=== PATIENT | male | born 1985 | race Caucasian/White ===

== ENCOUNTER 2019-06-21 18:25 | Inpatient (IN) | payer OTHER ==
[2019-06-21 19:20] VITALS: BMI 27.6
--- NOTE | 2019-06-21 20:51 | HP ---
COWS - Scale Resting Pulse: 1= ME 81-100 Sweatin= Chills/Flushing Restless Observation: 1= Difficult to Sit Still Pupil Size: 0= Normal to Room Light Bone or Joint Aches: 4=Acute Joint/Muscle Pain Runny Nose/ Eye Tearin= Runny Nose/Eyes GI Upset > 30mins: 2= Nausea/Diarrhea (diarrhea x 3) Tremor Observation: 2= Slight Tremor Visible Yawning Observation: 0= None Anxiety or Irritability: 1=Feels Anxious/Irritable Goose Flesh Skin: 0=Smooth Skin COWS Score: 14 CIWA Score - Admission Criteria OASAS Guidelines: Admission for Medically Managed Detox: Requires at least one of the followin. CIWA greater than 12 2. Seizures within the past 24 hours 3. Delirium tremens within the past 24 hours 4. Hallucinations within the past 24 hours 5. Acute intervention needed for co occurring medical disorder 6. Acute intervention needed for co occurring psychiatric disorder 7. Severe withdrawal that cannot be handled at a lower level of care (continued vomiting, continued diarrhea, abnormal vital signs) requiring intravenous medication and/or fluids 8. Admission ROS [facility] Chief Complaint: Heroin withdrawal symptoms Allergies/Adverse Reactions: Allergies Allergy/AdvReac Type Severity Reaction Status Date / Time No Known Allergies Allergy Verified 06/21/19 19:12 History of Present Illness: 34 years old male with 10 years of heroin dependence is seeking admission to detox. He reports insignificant period of sobriety. Patient reports history of depression and anxiety. He denies suicide attempt / suicidal ideation at this time. Exam Limitations: No Limitations - Ebola screening Have you traveled outside of the country in the last 21 days: No (N) Have you had contact with anyone from an Ebola affected area: No Do you have a fever: No - Review of Systems Constitutional: Chills, Loss of Appetite, Weakness EENT: reports: Blurred Vision, Sinus Pressure Respiratory: reports: No Symptoms reported Cardiac: reports: No Symptoms Reported GI: reports: Diarrhea (x 3), Nausea, Poor Appetite, Poor Fluid Intake : reports: No Symptoms Reported Musculoskeletal: reports: Back Pain, Joint Pain Integumentary: reports: Dryness, Flushing Neuro: reports: Tremors Endocrine: reports: No Symptoms Reported Hematology: reports: No Symptoms Reported Psychiatric: reports: Judgement Intact, Mood/Affect Appropiate Other Systems: Reviewed and Negative Patient History - Patient Medical History Hx Anemia: No Hx Asthma: No Hx Chronic Obstructive Pulmonary Disease (COPD): No Hx Cancer: No Hx Cardiac Disorders: No Hx Congestive Heart Failure: No Hx Hypertension: No Hx Hypercholesterolemia: No Hx Pacemaker: No HX Cerebrovascular Accident: No Hx Seizures: No Hx Dementia: No Hx Diabetes: No Hx Gastrointestinal Disorders: No Hx Liver Disease: No Hx Genitourinary Disorders: No Hx Sexually Transmitted Disorders: No Hx Renal Disease (ESRD): No Hx Thyroid Disease: No Hx Human Immunodeficiency Virus (HIV): No (Negative 2016) Hx Hepatitis C: No Hx Depression: Yes (Lexapro) Hx Suicide Attempt: No (Denies suicide attempt / suicidal ideation at this time) Hx Bipolar Disorder: No Hx Schizophrenia: No Other Medical History: Anxiety -Not on medication - Patient Surgical History Past Surgical History: No - PPD History Previous Implant?: No Documented Results: Negative w/o proof Implanted On Prior [facility] Admission?: No PPD to be Administered?: Yes - Reproductive History Patient is a Female of Child Bearing Age (11 -55 yrs old): No (male) - Smoking Cessation Smoking history: Never smoked Have you smoked in the past 12 months: No Hx Chewing Tobacco Use: No Initiated information on smoking cessation: No - Substance & Tx. History Hx Alcohol Use: No Hx Substance Use: Yes Substance Use Type: None, Heroin Hx Substance Use Treatment: Yes ([facility], [place]) - Substances abused Heroin Substance route: Inhalation Frequency: Daily Amount used: between 2 and 3 bags Age of first use: 24 Date of last use: 06/21/19 Family Disease History - Family Disease History Family Disease History: Heart Disease: Father, Other: Mother (crohn's disease) Admission Physical Exam S - Vital Signs Vital Signs: Vital Signs - 24 hr 06/21/19 19:12 Temperature 97.1 F L Pulse Rate 85 Respiratory 16 Rate Blood Pressure 137/93 - Physical General Appearance: Yes: Moderate Distress, Tremorous, Anxious HEENTM: Yes: Within Normal Limits Respiratory: Yes: Lungs Clear, Normal Breath Sounds, No Respiratory Distress Neck: Yes: Within Normal Limits Breast: Yes: Breast Exam Deferred Cardiology: Yes: Regular Rhythm, Murmur Abdominal: Yes: Normal Bowel Sounds Genitourinary: Yes: Within Normal Limits Back: Yes: Normal Inspection Musculoskeletal: Yes: Back pain, Muscle Pain Extremities: Yes: Normal Inspection Neurological: Yes: Within Normal Limits Integumentary: Yes: Warm Lymphatic: Yes: Within Normal Limits - Diagnostic (1) Opioid dependence with withdrawal Current Visit: Yes Status: Acute (2) Anxiety Current Visit: Yes Status: Acute (3) Depression Current Visit: Yes Status: Acute Cleared for Admission [facility] - Detox or Rehab [facility] Level of Care: Medically Managed Detox Regimen/Protocol: Methadone Breathalyzer - Breathalyzer Breathalyzer: 0 Urine Drug Screen - Test Device Lot number: [id number] Expiration date: 03/29/21 - Control Is test valid?: Yes - Results Drug screen NEGATIVE: Yes Inpatient Rehab Admission - Rehab Decision to Admit Inpatient rehab admission?: No
[2019-06-21] MEDS ORDERED: MAG HYDROX/AL HYDROX/SIMETH 30 ML UNIT-DOSE CUP PO PRN (21:09)
[2019-06-21] MEDS ORDERED: cloNIDine HCL 0.1 MG TABLET PO PRN (21:09)
[2019-06-21] MEDS ORDERED: ACETAMINOPHEN 325 MG TABLET (FP) PO PRN ×2 (21:09)
[2019-06-21] MEDS ORDERED: MAGNESIUM HYDROX 2400MG/30ML ORAL SUSPENSION 30 ML CUP PO PRN (21:09)
[2019-06-21] MEDS ORDERED: MAGNESIUM CITRATE 300 ML BOTTLE PO PRN (21:09)
[2019-06-21] MEDS ORDERED: MENTHOL/PHENOL 1 EACH UD MM PRN (21:09)
[2019-06-21] MEDS ORDERED: IBUPROFEN 400 MG TABLET (FP) PO PRN (21:09)
[2019-06-21] MEDS ORDERED: METHOCARBAMOL 500 MG TABLET PO PRN (21:09)
[2019-06-21] MEDS ORDERED: METHADONE HCL 10 MG TABLET (FOR DETOX USE ONLY) PO ONE (21:09)
[2019-06-21] MEDS ORDERED: hydrOXYzine PAMOATE 25 MG CAPSULE (FP) PO PRN (21:09)
[2019-06-21] MEDS: THIAMINE HCL 100 MG TABLET (FP) PO SCH (22:35)
[2019-06-21] MEDS: MELATONIN 5 MG TABLETS PO PRN (22:35)
[2019-06-22] MEDS ORDERED: METHADONE HCL 10 MG TABLET (FOR DETOX USE ONLY) ONE (09:20)
[2019-06-22] MEDS ORDERED: METHADONE HCL 5 MG TABLET (FOR DETOX USE ONLY) ONE (09:20)
[2019-06-22] MEDS ORDERED: METHADONE (DETOX) 20 MG, METHADONE (DETOX) 5 MG PO ONE (10:00)
[2019-06-22] MEDS: PRENATAL VITAMINS W/ FOLIC ACID TABLET (FP) PO SCH (10:27)
[2019-06-22 10:56] LABS: HEMOGLOBIN 14.2 GM/dL (11.7-16.9); MCH 35.5 pg (25.7-33.7); MCHC 34.6 g/dl (32.0-35.9); MEAN CELL VOLUME 102.6 fl (80-96); MEAN PLT VOLUME 8.1 fl (7.5-11.1); RDW 13.6 % (11.9-15.9); WHITE BLOOD COUNT 6.8 K/mm3 (4.0-10.0)
[2019-06-22 11:12] LABS: ALBUMIN 3.8 g/dl (3.4-5.0); BILIRUBIN,TOTAL 0.4 mg/dL (0.2-1); BLOOD UREA NITROGEN 13.1 mg/dL (7-18); CREATININE 0.9 mg/dL (0.55-1.3); POTASSIUM 4.4 mmol/L (3.5-5.1); TOT PROT 6.8 g/dl (6.4-8.2)
[2019-06-22 11:21] LABS: PLATELET COUNT 279 K/MM3 (134-434)
--- NOTE | 2019-06-22 11:36 | PN ---
S COWS - Scale Resting Pulse: 0= [place] 80 or Below Sweatin= Beads of Sweat on Face Restless Observation: 1= Difficult to Sit Still Pupil Size: 0= Normal to Room Light Bone or Joint Aches: 2= Severe Diffuse Aches Runny Nose/ Eye Tearin= None GI Upset > 30mins: 0= None Tremor Observation of Outstretched Hands: 2= Slight Tremor Visible Yawning Observation: 1= 1-2x During Session Anxiety or Irritability: 2=Irritable/Anxious Goose Flesh Skin: 0=Smooth Skin COWS Score: 11 [facility] Progress Note (SOAP) Subjective: c/o sweats, anxiety, and irritability. Objective: 06/22/19 11:35 Vital Signs 06/22/19 06/22/19 06/22/19 03:47 06:00 09:56 Temperature 97.3 F L 97.7 F Pulse Rate 56 L 57 L Respiratory 18 18 18 Rate Blood Pressure 107/64 116/72 Lab Results WBC 6.8 K/mm3 (4.0-10.0) 06/22/19 08:00 RBC 4.00 M/mm3 (4.00-5.60) 06/22/19 08:00 Hgb 14.2 GM/dL (11.7-16.9) 06/22/19 08:00 Hct 41.0 % (35.4-49) 06/22/19 08:00 MCV 102.6 fl (80-96) H 06/22/19 08:00 MCHC 34.6 g/dl (32.0-35.9) 06/22/19 08:00 RDW 13.6 % (11.9-15.9) 06/22/19 08:00 Plt Count 279 K/MM3 (134-434) 06/22/19 08:00 Sodium 143 mmol/L (136-145) 06/22/19 08:00 Potassium 4.4 mmol/L (3.5-5.1) 06/22/19 08:00 Chloride 107 mmol/L (98-107) 06/22/19 08:00 Carbon Dioxide 31 mmol/L (21-32) 06/22/19 08:00 Anion Gap 5 MMOL/L (8-16) L 06/22/19 08:00 BUN 13.1 mg/dL (7-18) 06/22/19 08:00 Creatinine 0.9 mg/dL (0.55-1.3) 06/22/19 08:00 Random Glucose 83 mg/dL (74-106) 06/22/19 08:00 Calcium 9.0 mg/dL (8.5-10.1) 06/22/19 08:00 Labs reviewed. Assessment: 06/22/19 11:36 AOX3, in no acute respiratory distress. Full ROM, ambulating in the unit. Withdrawal symptoms. Plan: continue detox.
--- NOTE | 2019-06-22 16:53 | CONSULT ---
[facility] Psychiatric Consult - Data Date of interview: 06/22/19 Admission source: [facility] Identifying data: First admission to [facility] for this male self- referred for detoxification (heroin). Seen on 6 . Patient is single, no dependents, homeless, unemployed and deprived of any form of financial assistance. Substance Abuse History: Confirmed by patient in this interview. Details in current [facility] report as follows : Smoking history: Never smoked. Have you smoked in the past 12 months: No. Hx Chewing Tobacco Use: No. Initiated information on smoking cessation: No. - Substance & Tx. History. Hx Alcohol Use: No. Hx Substance Use: Yes. Substance Use Type: None, Heroin. Hx Substance Use Treatment: Yes ([facility], [facility]). - Substances abused. Heroin. Substance route: Inhalation. Frequency: Daily. Amount used: between 2 and 3 bags. Age of first use: 24. Date of last use: 06/21/19 Medical History: Patient endorses good general health. Psychiatric History: No reported history of psychiatric hospitalizations. Patient states that he was diagnosed, more than five years ago, with MDD, ADHD and Anxiety Disorder (was a patient at a rehabilitation center). Mr Alicia reports recent stay at [facility] (11 months). Left that program in February 2019. Patient was reportedly medicated with lexapro + suboxone. Has, since, dropped out of psychiatric aftercare. Patient denies history of suicide attempts. Physical/Sexual Abuse/Trauma History: Patient denies. Additional Comment: Drug screen is negative. Mental Status Exam - Mental Status Exam Alert and Oriented to: Time, Place, Person Cognitive Function: Good Patient Appearance: Well Groomed (heavy grey) Mood: Hopeful, Euthymic Affect: Appropriate, Normal Range Patient Behavior: Appropriate (friendly), Cooperative Speech Pattern: Clear, Appropriate Voice Loudness: Normal Thought Process: Goal Oriented Thought Disorder: Not Present Hallucinations: Denies Suicidal Ideation: Denies Homicidal Ideation: Denies Insight/Judgement: Poor Sleep: Well Appetite: Good Muscle strength/Tone: Normal Gait/Station: Normal Psychiatric Findings - Problem List ([place] 1, 2,3) (1) Opioid dependence with withdrawal Current Visit: Yes Status: Chronic - Initial Treatment Plan Initial Treatment Plan: Psychoeducation. Sleep hygiene. Support. Detoxification. AA/NA meetings. Groups. Observation.
[2019-06-22] MEDS: THIAMINE HCL 100 MG TABLET (FP) PO SCH (22:08)
[2019-06-22] MEDS: MELATONIN 5 MG TABLETS PO PRN (22:08)
[2019-06-23] MEDS: PRENATAL VITAMINS W/ FOLIC ACID TABLET (FP) PO SCH (09:39)
[2019-06-23] MEDS: BISMUTH SUBSALICYLATE 524 MG/30 ML UD PO PRN (09:41)
[2019-06-23] MEDS ORDERED: METHADONE HCL 10 MG TABLET (FOR DETOX USE ONLY) PO ONE (10:00)
--- NOTE | 2019-06-23 15:37 | PN ---
[facility] COWS - Scale Resting Pulse: 0= [place] 80 or Below Sweatin= Chills/Flushing Restless Observation: 3= Extraneous Movement Pupil Size: 0= Normal to Room Light Bone or Joint Aches: 1= Mild Discomfort Runny Nose/ Eye Tearin= Runny Nose/Eyes GI Upset > 30mins: 1= Stomach Cramp Tremor Observation of Outstretched Hands: 0= None Yawning Observation: 0= None Anxiety or Irritability: 2=Irritable/Anxious Goose Flesh Skin: 0=Smooth Skin COWS Score: 10 [facility] Progress Note (SOAP) Subjective: Feels ok, medication is working Objective: 06/23/19 15:35 Last Vital Signs Temp Pulse Resp BP Pulse Ox 97.7 F 67 18 121/75 06/23/19 13:10 06/23/19 13:10 06/23/19 13:10 06/23/19 13:10 Laboratory Tests 06/22/19 06/22/19 06/22/19 07:00 08:00 08:00 WBC 6.8 RBC 4.00 Hgb 14.2 Hct 41.0 MCV 102.6 H MCH 35.5 H MCHC 34.6 RDW 13.6 Plt Count 279 MPV 8.1 Sodium 143 Potassium 4.4 Chloride 107 Carbon Dioxide 31 Anion Gap 5 L BUN 13.1 Creatinine 0.9 Est GFR (CKD-EPI)AfAm 127.80 Est GFR (CKD-EPI)NonAf 110.27 Random Glucose 83 Calcium 9.0 Total Bilirubin 0.4 AST 12 L ALT 20 Alkaline Phosphatase 38 L Total Protein 6.8 Albumin 3.8 RPR Titer HIV 1&2 Ag/Ab, 4th Gen Non reactive HIV 1&2 Antibody Screen HIV P24 Antigen 06/22/19 06/22/19 08:00 08:00 WBC RBC Hgb Hct MCV MCH MCHC RDW Plt Count MPV Sodium Potassium Chloride Carbon Dioxide Anion Gap BUN Creatinine Est GFR (CKD-EPI)AfAm Est GFR (CKD-EPI)NonAf Random Glucose Calcium Total Bilirubin AST ALT Alkaline Phosphatase Total Protein Albumin RPR Titer Nonreactive HIV 1&2 Ag/Ab, 4th Gen HIV 1&2 Antibody Screen Cancelled HIV P24 Antigen Cancelled Labs reviewed Assessment: 06/23/19 15:35 Withdrawal sxs Plan: Continue detox Encouraged PO water intake
[2019-06-23] MEDS: MELATONIN 5 MG TABLETS PO PRN (22:11)
[2019-06-23] MEDS: THIAMINE HCL 100 MG TABLET (FP) PO SCH (23:29)
[2019-06-24] MEDS ORDERED: METHADONE HCL 10 MG TABLET (FOR DETOX USE ONLY) ONE (08:32)
[2019-06-24] MEDS ORDERED: METHADONE HCL 5 MG TABLET (FOR DETOX USE ONLY) ONE (08:33)
[2019-06-24] MEDS: PRENATAL VITAMINS W/ FOLIC ACID TABLET (FP) PO SCH (09:47)
[2019-06-24] MEDS: BISMUTH SUBSALICYLATE 524 MG/30 ML UD PO PRN ×2 (09:49→22:04)
[2019-06-24] MEDS ORDERED: METHADONE (DETOX) 10 MG, METHADONE (DETOX) 5 MG PO ONE (10:00)
--- NOTE | 2019-06-24 10:48 | PN ---
[facility] COWS - Scale Resting Pulse: 0= ME 80 or Below Sweatin= Chills/Flushing Restless Observation: 1= Difficult to Sit Still Pupil Size: 0= Normal to Room Light Bone or Joint Aches: 2= Severe Diffuse Aches Runny Nose/ Eye Tearin= None GI Upset > 30mins: 0= None Tremor Observation of Outstretched Hands: 0= None Yawning Observation: 2= >3x During Session Anxiety or Irritability: 1=Feels Anxious/Irritable Goose Flesh Skin: 0=Smooth Skin COWS Score: 7 [facility] Progress Note (SOAP) Subjective: sweats shakes anxiety Objective: 06/24/19 10:55 Vital Signs Temperature 98.1 F 06/24/19 09:26 Pulse Rate 74 06/24/19 09:26 Respiratory Rate 18 06/24/19 09:26 Blood Pressure 129/67 06/24/19 09:26 O2 Sat by Pulse Oximetry (%) Laboratory Tests 06/22/19 06/22/19 06/22/19 07:00 08:00 08:00 WBC 6.8 RBC 4.00 Hgb 14.2 Hct 41.0 MCV 102.6 H MCH 35.5 H MCHC 34.6 RDW 13.6 Plt Count 279 MPV 8.1 Sodium 143 Potassium 4.4 Chloride 107 Carbon Dioxide 31 Anion Gap 5 L BUN 13.1 Creatinine 0.9 Est GFR (CKD-EPI)AfAm 127.80 Est GFR (CKD-EPI)NonAf 110.27 Random Glucose 83 Calcium 9.0 Total Bilirubin 0.4 AST 12 L ALT 20 Alkaline Phosphatase 38 L Total Protein 6.8 Albumin 3.8 RPR Titer HIV 1&2 Ag/Ab, 4th Gen Non reactive HIV 1&2 Antibody Screen HIV P24 Antigen 06/22/19 06/22/19 08:00 08:00 WBC RBC Hgb Hct MCV MCH MCHC RDW Plt Count MPV Sodium Potassium Chloride Carbon Dioxide Anion Gap BUN Creatinine Est GFR (CKD-EPI)AfAm Est GFR (CKD-EPI)NonAf Random Glucose Calcium Total Bilirubin AST ALT Alkaline Phosphatase Total Protein Albumin RPR Titer Nonreactive HIV 1&2 Ag/Ab, 4th Gen HIV 1&2 Antibody Screen Cancelled HIV P24 Antigen Cancelled aaox3 ambulating no acute distress Assessment: 06/24/19 10:56 withdrawal sx Plan: continue detox increase fluids
--- NOTE | 2019-06-24 13:03 | EKG ---
Test Reason : Blood Pressure : / mmHG Vent. Rate : 062 BPM Atrial Rate : 062 BPM P-R Int : 148 ms QRS Dur : 084 ms QT Int : 448 ms P-R-T Axes : 049 048 038 degrees QTc Int : 454 ms NORMAL SINUS RHYTHM WITH SINUS ARRHYTHMIA POSSIBLE LEFT ATRIAL ENLARGEMENT BORDERLINE ECG NO PREVIOUS ECGS AVAILABLE Confirmed by NIYAH LANDIN, LUBNA ([id number]) on 06/24/2019 1:02:28 PM Referred By: Maximilian Kaplan Confirmed By:LUBNA LINDER MD
[2019-06-24] MEDS: MELATONIN 5 MG TABLETS PO PRN (22:03)
[2019-06-24] MEDS: THIAMINE HCL 100 MG TABLET (FP) PO SCH (22:03)
[2019-06-25] MEDS ORDERED: METHADONE HCL 10 MG TABLET (FOR DETOX USE ONLY) PO ONE (10:00)
[2019-06-25] MEDS: PRENATAL VITAMINS W/ FOLIC ACID TABLET (FP) PO SCH (10:04)
--- NOTE | 2019-06-25 11:11 | PN ---
[facility] COWS - Scale Resting Pulse: 1= [place] 81-100 Sweatin= No chills or Flushing Restless Observation: 0= Sits Still Pupil Size: 0= Normal to Room Light Bone or Joint Aches: 0= None Runny Nose/ Eye Tearin= None GI Upset > 30mins: 0= None Tremor Observation of Outstretched Hands: 0= None Yawning Observation: 0= None Anxiety or Irritability: 1=Feels Anxious/Irritable Goose Flesh Skin: 0=Smooth Skin COWS Score: 2 [facility] Progress Note (SOAP) Subjective: feeling good very little sweats Objective: 06/25/19 11:10 Vital Signs Temperature 97.9 F 06/25/19 09:32 Pulse Rate 86 06/25/19 09:32 Respiratory Rate 18 06/25/19 09:32 Blood Pressure 125/73 06/25/19 09:32 O2 Sat by Pulse Oximetry (%) aaox3 ambulating no acute distress Assessment: 06/25/19 11:11 mild withdrawal sx Plan: continue detox increase fluids d/c in am
[2019-06-25] MEDS: THIAMINE HCL 100 MG TABLET (FP) PO SCH (22:16)
[2019-06-25] MEDS: BISMUTH SUBSALICYLATE 524 MG/30 ML UD PO PRN (22:16)
[2019-06-26] MEDS ORDERED: METHADONE HCL 5 MG TABLET (FOR DETOX USE ONLY) PO ONE (06:00)
--- NOTE | 2019-06-26 08:49 | DS ---
[facility] Detox Discharge Summary Admission Date: 06/21/19 Discharge Date: 06/26/19 - History Present History: Opioid Dependence - Physical Exam Results Vital Signs: Vital Signs Temperature 97.9 F 06/26/19 07:27 Pulse Rate 79 06/26/19 07:27 Respiratory Rate 18 06/26/19 07:27 Blood Pressure 110/73 06/26/19 07:27 O2 Sat by Pulse Oximetry (%) - Treatment Hospital Course: Detox Protocol Followed, Detoxed Safely, Responded well, Discharged Condition Good, Rehab Referral Accepted Patient has Accepted a Rehab Referral to: referred to [facility] - Medication Discharge Medications: Ambulatory Orders NK [No Known Home Medication] 06/21/19 - Diagnosis (1) Anxiety Current Visit: Yes Status: Acute (2) Depression Current Visit: Yes Status: Acute (3) Opioid dependence with withdrawal Current Visit: Yes Status: Chronic - AMA Did Patient Leave Against Medical Advice: No
[2019-06-26 09:28] VITALS: BP 133/80; PULSE 87; TEMP 97.7
== END 2019-06-26 11:20 | disposition home or self-care (01) | DRG 773 ==
LOC: YASAS 18:25 → Y6N 21:47
PROVIDERS: ADMIT Surgery; ATTEND Surgery
PROC: HZ2ZZZZ Detoxification Services for Substance Abuse Treatment (ICD-10-PCS; principal; 2019-06-21)
DX: F11.23 Opioid dependence with withdrawal (principal); F41.9 Anxiety disorder, unspecified; F32.9 Major depressive disorder, single episode, unspecified; R01.1 Cardiac murmur, unspecified
CPT/HCPCS: 36415; 80053; 85027; 86480; 86593; 87389; 93005; 93010